=== PATIENT | male | born 1960 | race American Indian/Alaskan Native ===

== ENCOUNTER 2021-08-23 07:27 | Day surgery (SDC) | payer BC ==
[~2021-08-23 07:27] MED LIST: LACTATED RINGERS 1,000 ML IV SCH
[2021-08-23] MEDS ORDERED: GENTAMICIN/NS 80 MG/100 ML 100 ML IV SCH (08:00)
[2021-08-23] MEDS ORDERED: ceFAZolin/Water 2 GM/20 ML 2 GM/20 ML SYRINGE IV ONE (08:06)
--- NOTE | 2021-08-23 08:07 | Anesthesia Consultation ---
Anesthesia Consult and Med Hx Date of service: 08/23/21 - Airway Anesthetic Teeth Evaluation: Good ROM Head & Neck: Adequate Mental/Hyoid Distance: Adequate Mallampati Class: Class III Intubation Access Assessment: Possibly Difficult - Pre-Operative Health Status ASA Pre-Surgery Classification: ASA3 Proposed Anesthetic Plan: General - Pulmonary Hx Smoking: Yes (occasional cigar) Hx Respiratory Symptoms: No Hx Sleep Apnea: Yes (+ CPAP ) - Cardiovascular System Hx Hypertension: No Hx Heart Attack/AMI: No (normal LV function per cardiology note) Hx Percutaneous Transluminal Coronary Angioplasty (PTCA): No Hx Cardia Arrhythmia: No - Central Nervous System CVA: No - Gastrointestinal Hx Gastroesophageal Reflux Disease: Yes - Endocrine Hx Renal Disease: No Hx Liver Disease: No Hx Insulin Dependent Diabetes: No Hx Non-Insulin Dependent Diabetes: No Hx Thyroid Disease: No - Other Systems Hx Obesity: Yes (BMI 58) - Additional Comments Anesthesia Medical History Comments: No hx anesthetic complications. Preop cardiology eval on chart.
--- NOTE | 2021-08-23 08:08 | Anesthesia Day of Surgery ---
Anesthesia Day of Surgery - Day of Surgery Patient Examined: Yes Patient H&P Reviewed: Yes Patient is NPO: Yes Cardiac Clearance: Yes
[2021-08-23] MEDS ORDERED: fentaNYL 100 MCG/2 ML INJ ONE (08:47)
[2021-08-23] MEDS ORDERED: GLYCOPYRROLATE 0.4 MG/2 ML INJ ONE (08:48)
[2021-08-23] MEDS ORDERED: LIDOCAINE MPF (2%) 20 MG/1 ML VIAL 5 ML ONE (08:48)
[2021-08-23] MEDS ORDERED: propofoL 200 MG/20 ML VIAL IV ONE ×2 (08:48)
[2021-08-23] MEDS ORDERED: HYDROcodone/ACETAMINOPHEN 5-325 MG TAB PO PRN (09:00)
[2021-08-23] MEDS ORDERED: fentaNYL 100 MCG/2 ML INJ IV PRN (09:00)
[2021-08-23] MEDS ORDERED: ONDANSETRON 4 MG/2 ML INJ IV PRN (09:00)
--- NOTE | 2021-08-23 10:24 | Short Stay Summary ---
Short Stay Documentation Date of service: 08/23/21 - History H&P: obtained from office - Allergies and Medications Current Medications: Allergies No Known Allergies Allergy (Verified 07/16/21 16:24) Home Medications Medication Instructions Recorded Confirmed Last Taken Type Oxybutynin [Ditropan] 5 mg PO DAILY 07/26/21 08/17/21 Unknown History Active Medications Hydrocodone Bitart/Acetaminophen (Hydrocodone/Acetaminophen 5-325 Mg Tab) 2 each PO ONCE PRN PRN Reason: Pain, Moderate (4-6) Stop: 08/23/21 18:00 Fentanyl (Fentanyl 100 Mcg/2 Ml Inj) 50 mcg IV Q5MIN PRN PRN Reason: Pain , Severe (7-10) Stop: 08/23/21 18:00 Lactated Ringer's (Lactated Ringers) 1,000 mls @ 100 mls/hr IV DIRECT RAZA Stop: 08/23/21 23:59 Cefazolin Sodium 3 gm/ Sodium (Chloride) 100 mls @ 100 mls/30 min IV PREOP RAZA; Protocol Stop: 08/23/21 19:00 Gentamicin Sulfate/Sodium Chloride (Gentamicin/Ns 80 Mg/100 Ml) 100 mls @ 200 mls/hr IV ONCE@0800 RAZA Stop: 08/23/21 17:00 Ondansetron HCl (Ondansetron 4 Mg/2 Ml Inj) 4 mg IV ONCE PRN PRN Reason: Nausea And Vomiting Stop: 08/23/21 18:00 - Brief post op/procedure progress note Date of procedure: 08/23/21 Pre-op diagnosis: elevated psa, bph Post-op diagnosis: other (31cc prostate) Procedure: cysto, rpg, pus bx Anesthesia: GETA Surgeon: NUHA DOAN Estimated blood loss: minimal Pathology: list (prostate cores) Specimen disposition: to lab Condition: stable - Hospital course Hospital course: bactrim,norco, post op info on chart - Disposition Condition at discharge: Stable Disposition: 01 HOME / SELF CARE / HOMELESS Short Stay Discharge Plan Follow up with: MARII SANTANA MD [Primary Care Provider] - 7 Days
--- NOTE | 2021-08-23 10:40 | Ultrasound Report ---
Limited prostate Ultrasound HISTORY: ELEVATED PSA. TECHNIQUE: Grayscale imaging performed. IMPRESSION: Ultrasound guidance provided for transrectal prostate biopsy. The prostate volume is 32 m L with heterogeneous appearance. Please refer to the operative note for complete details. Signer Name: Abel Gilliland MD Signed: 08/23/2021 10:36 AM Workstation Name: [id number]
--- NOTE | 2021-08-23 10:45 | Operative Report ---
DATE OF SURGERY: 08/23/2021 PREOPERATIVE DIAGNOSIS: Elevated prostate specific antigen, benign prostatic hypertrophy. POSTOPERATIVE DIAGNOSIS: Elevated prostate specific antigen, benign prostatic hypertrophy. PROCEDURES: Cystoscopy, bilateral retrograde pyelograms, transrectal ultrasound biopsy of prostate 32 grams. SURGEON: Burke March MD ANESTHESIA: General. ESTIMATED BLOOD LOSS: Minimal. FLUIDS: Crystalloid. COMPLICATIONS: No complications. INDICATIONS: This patient is a 60-year-old gentleman known to our service with an elevated PSA in the past. He had a negative biopsy in 2014. PSA of 6. PSA continued to rise. He underwent an MRI of the prostate and was found to have a lesion on the right side. Discussed fusion versus ultrasound biopsy, possible saturation. He agreed to proceed with ultrasound biopsy with me. DESCRIPTION OF PROCEDURE: The patient was taken to the operative suite, placed in a supine position. After adequate general anesthesia, placed in the dorsal lithotomy position, prepped and draped in a sterile fashion. Lugo-cystourethroscopy was performed with a 22-St Helenian Storz cystoscope, no urethral abnormalities. His prostate displayed mild trilobar obstruction. Bladder, no tumors or stones. Mild diffuse trabeculation. Both ureteral orifices in normal position. No tumors or stones. Bilateral retrograde pyelograms were obtained with an 8-St Helenian Amador catheter and 8 mL of contrast. No filling defects or obstruction. Next, using a transrectal probe real time ultrasound was performed. Sagittal and transverse plane was measured, 32 mL gram prostate. He did have some calcifications on the right side. No obvious lesion. Twelve-core biopsy was obtained through the calcifications on the right side with a focus on those calcifications. The patient tolerated the procedure well. Rectal exam was benign. He was extubated and taken to recovery room. He will go home on Bactrim and [place] and follow up in the office. TID: [id number] RECEIPT: [id number] DOMINICK/NICKY
--- NOTE | 2021-08-23 12:23 | Post Anesthesia Evaluation ---
- Post Anesthesia Evaluation Patient Participated: Yes Airway Patent: Yes Stable Respiratory Function: Yes Nausea/Vomiting: No Temp > 96.8F: Yes Pain Manageable: Yes Adequeate Hydration: Yes Anesthesia Complications: No
[2021-08-23 12:47] VITALS: BP 133/88
--- NOTE | 2021-08-23 15:25 | Fluoroscopy Report ---
RETROGRADE PYELOGRAM 8 VIEWS 1003 INDICATION: ELEVATED PSA W/BPH COMPARISON: None available. FINDINGS: 8 C-arm views are presented. These show injections of both ureters without evidence of obst ruction or calyceal dilatation. No obvious calculi are identified. Good drainage is seen. Signer Name: Yobany Go MD Signed: 08/23/2021 3:21 PM Workstation Name: [id number]
== END 2021-08-23 11:00 | disposition home or self-care (01) ==
LOC: OR 07:27
PROVIDERS: ATTEND Urology
DX: R97.20 Elevated prostate specific antigen [PSA] (principal); N40.1 Benign prostatic hyperplasia with lower urinary tract symptoms; Z20.822 Contact with and (suspected) exposure to COVID-19; K21.9 Gastro-esophageal reflux disease without esophagitis; G47.33 Obstructive sleep apnea (adult) (pediatric); E66.9 Obesity, unspecified; Z68.43 Body mass index [BMI] 50.0-59.9, adult; F17.210 Nicotine dependence, cigarettes, uncomplicated; Z79.899 Other long term (current) drug therapy; Z98.890 Other specified postprocedural states
CPT/HCPCS: 52005; 55700; 74420; 76872; 88305; C1758; J0690; J1815; J2704; J3010; J3490; Q9967; U0003; J7120